=== PATIENT | male | born 1975 | race Caucasian/White ===

== ENCOUNTER 2019-03-30 18:57 | Emergency (ER) | payer OTHER ==
[~2019-03-30] VITALS: Ht 175.3 cm; Wt 80.0 kg
[~2019-03-30 18:57] MED LIST: ACET500C5 PO; AMPI500C9 PO; ATOR20TA65 PO; BACL10TA PO; CEPH-443 PO; PANT40TA4 PO; PARO12.53 PO; SENN-120 PO; UDMOM PO
[2019-03-30 18:59] VITALS: Ht 175.3 cm; Wt 80.0 kg
[2019-03-30] MEDS ORDERED: SODIUM CHLORIDE 0.9% 1L BAG IV* STA (19:04)
[2019-03-30] MEDS ORDERED: ACETAMINOPHEN 325 MG TAB PO STA (19:04)
[2019-03-30] MEDS ORDERED: morphine 4 MG/ML VIAL IV STA (19:04)
[2019-03-30] MEDS ORDERED: KETOROLAC 15 MG INJ IV STA (19:04)
[2019-03-30] MEDS ORDERED: ONDANSETRON 4 MG INJ IV STA (19:04)
[2019-03-30] MEDS: CEFEPIME 2GM/50 ML (PMX) 50 ML IVPB STA ×2 (19:25→19:27)
[2019-03-31] MEDS ORDERED: ONDANSETRON (ODT) 4 MG TAB ODT STA (06:50)
[2019-03-31] MEDS ORDERED: HYDROCODONE/APAP (5/325) TAB PO ONE (07:00)
[2019-03-31 07:09] VITALS: BP 151/111; PULSE 78; RESP 28
== END 2019-03-31 07:23 | disposition home or self-care (01) ==
LOC: E/R 18:57
DX: N30.00 Acute cystitis without hematuria (principal)
CPT/HCPCS: 36415; 70450; 71045; 74176; 80053; 81003; 83605; 84484; 85025; 85610; 85730; 87040; 87086; 93005; 96374; 96375; J0692; J1885; J2270; J2405; J7030; Z7502; Z7610